=== PATIENT | female | born 1995 | race Caucasian/White ===

== ENCOUNTER → 2017-12-05 | Outpatient (CLI) | payer BC, OTHER ==
[~2017-12-05] MED LIST: CETI10 PO; PRED5 PO; TRIA80TC TOP
== END ==
LOC: LAB SHORT 11:39 → LAB 11:39
DX: B37.9 Candidiasis, unspecified (principal)
CPT/HCPCS: 87070; 87077; 87147; 87186; 87205

== ENCOUNTER → 2018-12-02 | Outpatient (CLI) | payer BC, OTHER | LOC: LAB 18:13 → LAB SHORT 18:13 | DX: Z20.2 Contact with and (suspected) exposure to infections with a predominantly sexual mode of transmission (principal) | CPT/HCPCS: 87070; 87205 ==

== ENCOUNTER → 2019-02-21 | Outpatient (CLI) | payer BC, OTHER | LOC: LAB 17:46 → LAB SHORT 17:46 | DX: N89.8 Other specified noninflammatory disorders of vagina (principal) | CPT/HCPCS: 87070; 87205 ==

== ENCOUNTER → 2019-04-01 | Outpatient (CLI) | payer BC, OTHER ==
[2019-04-02 07:13] LABS: Candida species (DNA Probe) Negative (NEGATIVE); G. vaginalis (DNA Probe) Negative (NEGATIVE); T. vaginalis (DNA Probe) Negative (NEGATIVE)
== END ==
LOC: LAB 20:20 → LAB SHORT 20:20
PROVIDERS: Registered Nurse Community Health
DX: N89.8 Other specified noninflammatory disorders of vagina (principal); L29.3 Anogenital pruritus, unspecified
CPT/HCPCS: 87480; 87510; 87660

== ENCOUNTER → 2020-07-21 | Outpatient (CLI) | payer BC, OTHER | LOC: PLD 07:33 → LAB SHORT 07:33 | DX: L30.8 Other specified dermatitis (principal) | CPT/HCPCS: 88305; 88312 ==

== ENCOUNTER → 2021-08-30 | Outpatient (CLI) | payer BC, OTHER | END | disposition home or self-care (01) | LOC: LAB SHORT 13:20 → LAB 13:20 | DX: R21 Rash and other nonspecific skin eruption (principal) | CPT/HCPCS: 87070; 87205 ==

== ENCOUNTER → 2021-11-04 | Outpatient (CLI) | payer BC, OTHER ==
[2021-11-05 10:04] LABS: Candida species (DNA Probe) Positive (NEGATIVE); G. vaginalis (DNA Probe) Positive (NEGATIVE); T. vaginalis (DNA Probe) Negative (NEGATIVE)
[2021-11-06 14:09] LABS: CHLAMYDIA BY NAA Negative (Negative); GONOCOCCUS BY NAA Negative (Negative); TRICH VAG BY NAA Negative (Negative)
== END ==
LOC: LAB SHORT 15:09
PROVIDERS: Registered Nurse Community Health
DX: N89.8 Other specified noninflammatory disorders of vagina (principal)
CPT/HCPCS: 87480; 87510; 87660

== ENCOUNTER → 2022-03-16 | Outpatient (CLI) | payer BC, OTHER ==
[2022-03-17 09:19] LABS: Candida species (DNA Probe) Negative (NEGATIVE); G. vaginalis (DNA Probe) Negative (NEGATIVE); T. vaginalis (DNA Probe) Negative (NEGATIVE)
== END | disposition home or self-care (01) ==
LOC: LAB 17:00 → LAB SHORT 17:00
PROVIDERS: Registered Nurse Community Health
DX: N76.0 Acute vaginitis (principal)
CPT/HCPCS: 87480; 87510; 87660

== ENCOUNTER → 2022-08-11 | Outpatient (CLI) | payer BC, OTHER ==
[2022-08-12 13:39] LABS: Candida species (DNA Probe) Negative (NEGATIVE); G. vaginalis (DNA Probe) Negative (NEGATIVE); T. vaginalis (DNA Probe) Negative (NEGATIVE)
== END | disposition home or self-care (01) ==
LOC: LAB 13:08 → LAB SHORT 13:08
PROVIDERS: Advanced Practice Midwife
DX: Z11.3 Encounter for screening for infections with a predominantly sexual mode of transmission (principal); N90.89 Other specified noninflammatory disorders of vulva and perineum; N76.0 Acute vaginitis
CPT/HCPCS: 87070; 87077; 87186; 87205; 87480; 87510; 87660

== ENCOUNTER → 2023-03-16 | Outpatient (CLI) | payer BC, OTHER | END | disposition home or self-care (01) | LOC: LAB 13:04 → LAB SHORT 13:04 | DX: R35.0 Frequency of micturition (principal) | CPT/HCPCS: 87077; 87086; 87186 ==

== ENCOUNTER 2023-04-09 09:29 | Day surgery (SDC) | payer OTHER ==
[~2023-04-09] VITALS: Ht 177.8 cm; Wt 95.8 kg
[2023-04-09] MEDS ORDERED: OMEP20ER PO (10:04)
[2023-04-09] MEDS ORDERED: IBUP800 PO (10:05)
--- NOTE | 2023-04-09 10:47 | NUR ---
04/09/23 1047 Shi Tejada WORK RELEASE NOTE PROVIDED TO PT IN PREOP FROM MD [employer] FOR PT TO RETURN TO WORK TOMORROW, PLACED IN PT FOLDER.
[2023-04-09 12:11] VITALS: BP 112/66
== END 2023-04-09 12:28 | disposition home or self-care (01) ==
LOC: ORSCSDS 09:29
PROVIDERS: Internal Medicine Gastroenterology
PROC: 0DB68ZX Excision of Stomach, Via Natural or Artificial Opening Endoscopic, Diagnostic (ICD-10-PCS; principal; 2023-04-09 10:45)
PROC: 0DB58ZX Excision of Esophagus, Via Natural or Artificial Opening Endoscopic, Diagnostic (ICD-10-PCS; principal; 2023-04-09 10:45)
PROC: 0DBE8ZX Excision of Large Intestine, Via Natural or Artificial Opening Endoscopic, Diagnostic (ICD-10-PCS; principal; 2023-04-09 10:45)
DX: K21.00 Gastro-esophageal reflux disease with esophagitis, without bleeding (principal); K62.5 Hemorrhage of anus and rectum; K59.00 Constipation, unspecified; K59.09 Other constipation; K29.70 Gastritis, unspecified, without bleeding; Z79.899 Other long term (current) drug therapy
CPT/HCPCS: 88305; 88342; J2704; J7120

== ENCOUNTER → 2023-12-14 | Outpatient (CLI) | payer OTHER, BC ==
[~2023-12-14] MED LIST changes: +IBUP800 PO; +OMEP20ER PO
[2023-12-14 17:24] LABS: Source, Urine Clean Catch
[2023-12-14 18:44] LABS: BASOPHILS ABSOLUTE AUTO 0.07 K/mm3 (0.00-0.23); BASOPHILS PERCENT AUTO 0 % (0-2); EOSINOPHILS ABSOLUTE AUTO 0.14 K/mm3 (0.00-0.68); EOSINOPHILS PERCENT AUTO 1 % (0-6); Hemoglobin 13.5 g/dL (11.5-16.0); IMMATURE GRAN ABSOLUTE AUTO 0.06 K/mm3 (0.00-0.10); IMMATURE GRAN PERCENT AUTO 0 % (0-1); LYMPHOCYTES ABSOLUTE AUTO 2.38 K/mm3 (0.84-5.20); LYMPHOCYTES PERCENT AUTO 14 % (21-46); MONOCYTES ABSOLUTE AUTO 0.93 K/mm3 (0.16-1.47); MONOCYTES PERCENT AUTO 6 % (4-13); Mean Corpuscular HGB 30.2 pg (26.0-34.0); Mean Corpuscular HGB Conc 34.6 g/dL (31.5-36.5); Mean Corpuscular Volume 87 fL (80-100); Mean Platelet Volume 9.6 fL (9.1-12.4); NEUTROPHILS ABSOLUTE AUTO 13.27 K/mm3 (1.96-9.15); NEUTROPHILS PERCENT AUTO 79 % (41-73); Platelet Count 371 K/mm3 (150-400); RDW Coefficient Variation 12.2 % (11.7-14.2); RDW Standard Deviation 39.1 fL (35.1-46.3); Red Blood Cell Count 4.47 M/mm3 (3.80-5.20); White Blood Cell Count 16.85 K/mm3 (4.00-11.30)
[2023-12-14 18:45] LABS: Appearance, Urine Clear (Clear); Bilirubin, Urine Neg (Neg); Blood, Urine Neg (Neg); Color, Urine Yellow (P-Yellow); Glucose Qualitative, Urine Neg (Neg); Ketones, Urine 2+ (Neg); Leukocyte Esterase, Urine Neg (Neg); Nitrite, Urine Neg (Neg); Protein, Urine 1+ (Neg); Urobilinogen, Urine NORM (Normal)
[2023-12-17 08:44] LABS: HIV 1,2 COMBO ANTIGEN/ANTIBODY Negative (Negative)
[2023-12-17 09:02] LABS: HEPATITIS C AB CIA INTERP Negative (Negative); HEPATITIS C ANTIBODY CIA INDEX 0.05 IV
[2023-12-17 11:55] LABS: HEPATITIS B SURFACE ANTIGEN Negative (Negative)
== END | disposition home or self-care (01) ==
LOC: LAB 17:22 → LAB SHORT 17:22
PROVIDERS: Registered Nurse Community Health
DX: Z34.91 Encounter for supervision of normal pregnancy, unspecified, first trimester (principal)
CPT/HCPCS: 84443; 86803; 87086; 87340; 87389

== ENCOUNTER → 2023-12-25 | Outpatient (CLI) | payer OTHER ==
[2023-12-27 23:36] LABS: APTIMA MEDIA TYPE Urine; C. TRACHOMATIS BY TMA Negative (Negative); N. GONORRHOEAE BY TMA Negative (Negative); SPECIMEN SOURCE Urine
== END | disposition home or self-care (01) ==
LOC: LAB 14:57 → LAB SHORT 14:57
PROVIDERS: Registered Nurse Community Health
DX: Z34.91 Encounter for supervision of normal pregnancy, unspecified, first trimester (principal)
CPT/HCPCS: 87491; 87591

== ENCOUNTER → 2024-04-24 | Outpatient (CLI) | payer OTHER ==
[2024-04-24 13:25] LABS: Hematocrit 37.8 % (33.0-51.0); Hemoglobin 12.8 g/dL (11.5-16.0)
== END ==
LOC: LAB 11:28 → LAB SHORT 11:28
PROVIDERS: Registered Nurse Community Health
DX: Z34.93 Encounter for supervision of normal pregnancy, unspecified, third trimester (principal); Z86.14 Personal history of Methicillin resistant Staphylococcus aureus infection
CPT/HCPCS: 82950; 85014; 85018; 87081

== ENCOUNTER → 2024-06-05 | Outpatient (CLI) | payer OTHER | LOC: LAB 16:06 → LAB SHORT 16:06 | DX: Z86.14 Personal history of Methicillin resistant Staphylococcus aureus infection (principal) | CPT/HCPCS: 87081 ==

== ENCOUNTER → 2024-06-11 | Outpatient (CLI) | payer OTHER ==
[2024-06-11 15:02] LABS: BASOPHILS ABSOLUTE AUTO 0.03 K/mm3 (0.00-0.23); BASOPHILS PERCENT AUTO 0 % (0-2); EOSINOPHILS ABSOLUTE AUTO 0.09 K/mm3 (0.00-0.68); EOSINOPHILS PERCENT AUTO 1 % (0-6); Hematocrit 34.3 % (33.0-51.0); Hemoglobin 11.9 g/dL (11.5-16.0); IMMATURE GRAN ABSOLUTE AUTO 0.07 K/mm3 (0.00-0.10); IMMATURE GRAN PERCENT AUTO 1 % (0-1); LYMPHOCYTES ABSOLUTE AUTO 1.61 K/mm3 (0.84-5.20); LYMPHOCYTES PERCENT AUTO 13 % (21-46); MONOCYTES ABSOLUTE AUTO 0.61 K/mm3 (0.16-1.47); MONOCYTES PERCENT AUTO 5 % (4-13); Mean Corpuscular HGB 31.6 pg (26.0-34.0); Mean Corpuscular HGB Conc 34.7 g/dL (31.5-36.5); Mean Corpuscular Volume 91 fL (80-100); Mean Platelet Volume 10.4 fL (9.1-12.4); NEUTROPHILS ABSOLUTE AUTO 9.99 K/mm3 (1.96-9.15); NEUTROPHILS PERCENT AUTO 81 % (41-73); Platelet Count 325 K/mm3 (150-400); RDW Coefficient Variation 13.1 % (11.7-14.2); RDW Standard Deviation 42.5 fL (35.1-46.3); Red Blood Cell Count 3.77 M/mm3 (3.80-5.20)
[2024-06-11 19:58] LABS: Albumin, Blood 2.6 g/dL (3.4-5.0); Albumin/Globulin Ratio 0.7 (0.8-1.8); Bilirubin, Total 0.2 mg/dL (0.1-1.0); Bun/Creatinine Ratio 10.9 (12.0-20.0); Calcium, Blood 9.2 mg/dL (8.5-10.1); Creatinine, Blood 0.64 mg/dL (0.40-1.00); Globulin, Blood 3.6 g/dL (2.2-4.0); Potassium, Blood 3.6 mmol/L (3.5-5.5); Total Protein, Blood 6.2 g/dL (6.4-8.2)
== END | disposition home or self-care (01) ==
LOC: LAB SHORT 13:05 → LAB 13:05
PROVIDERS: Registered Nurse Community Health
DX: O16.9 Unspecified maternal hypertension, unspecified trimester (principal)
CPT/HCPCS: 80053; 85025

== ENCOUNTER → 2024-06-16 | Outpatient (CLI) | payer OTHER ==
[2024-06-16 21:54] LABS: Protein, Urine Quantitative 17.4 mg/dL (0.0-11.9)
== END | disposition home or self-care (01) ==
LOC: LAB SHORT 05:05 → LAB 05:05
PROVIDERS: Registered Nurse Community Health
DX: O16.3 Unspecified maternal hypertension, third trimester (principal); Z86.14 Personal history of Methicillin resistant Staphylococcus aureus infection
CPT/HCPCS: 84156; 87081; 87150

== ENCOUNTER 2024-06-24 07:10 | Inpatient (IN) | payer OTHER ==
[~2024-06-24] VITALS: Ht 177.8 cm; Wt 114.5 kg
[2024-06-24] VITALS (31 sets, daily range): BP systolic 107–165; BP diastolic 55–103
[2024-06-24] MEDS ORDERED: Methylergonovine Maleate 0.2MG / ML 1ML Amp IM PRN (07:40)
[2024-06-24] MEDS ORDERED: Misoprostol 200 MCG Tab BC PRN (07:40)
[2024-06-24] MEDS ORDERED: ePHEDrine Sulfate 50 MG/ML 1ML Injection XX PRN (07:40)
[2024-06-24] MEDS ORDERED: Misoprostol 200 MCG Tab PR PRN (07:40)
[2024-06-24] MEDS ORDERED: Carboprost Tromethamine 250 MCG/ML 1ML Amp IM PRN (07:40)
[2024-06-24] MEDS ORDERED: Lactated Ringer's 1,000 ML IV SCH ×4 (07:40→19:50)
[2024-06-24] MEDS ORDERED: Ondansetron HCl 2 MG / ML 2ML Vial IV PRN (07:40)
[2024-06-24] MEDS ORDERED: Acetaminophen 500 MG Tab PO PRN (07:40)
[2024-06-24] MEDS ORDERED: Lactated Ringer's 1,000 ML IV PRN (07:40)
[2024-06-24] MEDS ORDERED: OXYTOCIN/RINGER'S LACTATE 500 ML IV PRN (07:40)
[2024-06-24] MEDS ORDERED: Oxytocin 10 Unit / ML Vial IM PRN (07:40)
[2024-06-24] MEDS ORDERED: FentaNYL 2mcg/ml-Bup 0.1% Epd 250 ML EPI PRN (07:40)
[2024-06-24] MEDS ORDERED: Tranexamic Acid 100 ML IV SCH (07:40)
[2024-06-24] MEDS ORDERED: Calcium Carbonate 500 MG Tab Chew PO PRN (07:45)
[2024-06-24] MEDS ORDERED: Misoprostol 25 MCG Tab PO SCH (08:00)
[2024-06-24 08:04] LABS: BASOPHILS ABSOLUTE AUTO 0.07 K/mm3 (0.00-0.23); BASOPHILS PERCENT AUTO 1 % (0-2); EOSINOPHILS ABSOLUTE AUTO 0.15 K/mm3 (0.00-0.68); EOSINOPHILS PERCENT AUTO 1 % (0-6); Hematocrit 32.4 % (33.0-51.0); Hemoglobin 11.3 g/dL (11.5-16.0); IMMATURE GRAN ABSOLUTE AUTO 0.07 K/mm3 (0.00-0.10); IMMATURE GRAN PERCENT AUTO 1 % (0-1); LYMPHOCYTES ABSOLUTE AUTO 1.72 K/mm3 (0.84-5.20); LYMPHOCYTES PERCENT AUTO 13 % (21-46); MONOCYTES ABSOLUTE AUTO 0.65 K/mm3 (0.16-1.47); MONOCYTES PERCENT AUTO 5 % (4-13); Mean Corpuscular HGB 31.4 pg (26.0-34.0); Mean Corpuscular HGB Conc 34.9 g/dL (31.5-36.5); Mean Corpuscular Volume 90 fL (80-100); Mean Platelet Volume 10.3 fL (9.1-12.4); NEUTROPHILS ABSOLUTE AUTO 10.17 K/mm3 (1.96-9.15); NEUTROPHILS PERCENT AUTO 79 % (41-73); Platelet Count 298 K/mm3 (150-400); RDW Standard Deviation 42.3 fL (35.1-46.3); White Blood Cell Count 12.83 K/mm3 (4.00-11.30)
[2024-06-24] MEDS ORDERED: LABE200 PO (08:57)
[2024-06-24] MEDS ORDERED: ASPI81CH PO (08:58)
[2024-06-24] MEDS ORDERED: PRENATAL TABLE1 EAC2 PO (08:59)
[2024-06-24] MEDS ORDERED: Labetalol HCL 100 MG TAB PO SCH (12:05)
[2024-06-24] MEDS ORDERED: Bupivacaine 0.5% HCl 5 MG/ML 30MLVIAL XX ONE (17:20)
[2024-06-24] MEDS ORDERED: OXYTOCIN/RINGER'S LACTATE 500 ML IV SCH (19:25)
[2024-06-24] MEDS ORDERED: Magnesium Sulfate 500 ML IV SCH (19:50)
[2024-06-24] MEDS ORDERED: NIFEdipine 10 MG Cap PO ONE (19:50)
[2024-06-24] MEDS ORDERED: Calcium Gluconate 0.465 mEq/ml 10 ml Vial IV PRN (19:50)
[2024-06-24] MEDS ORDERED: Magnesium Sulf 2 GM/Water 50ML 50 ML IV SCH (19:50)
[2024-06-24] MEDS ORDERED: Magnesium Sul 4 GM/Water100 ML 100 ML IV ONE (19:50)
[2024-06-24] MEDS ORDERED: Labetalol HCL 5 MG/ML 4ML Injection (Single Dose) IV PRN (19:55)
[2024-06-24] MEDS ORDERED: NIFEdipine 10 MG Cap ONE (19:56)
[2024-06-24 21:28] LABS: Albumin, Blood 2.4 g/dL (3.4-5.0); Albumin/Globulin Ratio 0.7 (0.8-1.8); Bilirubin, Total 0.2 mg/dL (0.1-1.0); Bun/Creatinine Ratio 18.6 (12.0-20.0); Calcium, Blood 9.6 mg/dL (8.5-10.1); Creatinine, Blood 0.75 mg/dL (0.40-1.00); Globulin, Blood 3.3 g/dL (2.2-4.0); Potassium, Blood 3.8 mmol/L (3.5-5.5); Total Protein, Blood 5.7 g/dL (6.4-8.2)
[2024-06-24 22:39] LABS: Creatinine, Urine Random 58.3 mg/dL (27.00-270.00); Protein, Urine Random 14.5 mg/dL (0.0-11.9); Protein/Creat Ratio, Ur Random 0.2
[2024-06-25] VITALS (49 sets, daily range): BP systolic 109–173; BP diastolic 59–103
--- NOTE | 2024-06-25 01:07 | NUR ---
PITOCIN CHECKLIST DONE. TRACING EXPECTED MINIMAL DUE TO MATERNAL MAGNESIUM INFUSION.
[2024-06-25 06:05] LABS: BASOPHILS ABSOLUTE AUTO 0.06 K/mm3 (0.00-0.23); BASOPHILS PERCENT AUTO 0 % (0-2); EOSINOPHILS PERCENT AUTO 1 % (0-6); Hemoglobin 11.9 g/dL (11.5-16.0); IMMATURE GRAN ABSOLUTE AUTO 0.07 K/mm3 (0.00-0.10); IMMATURE GRAN PERCENT AUTO 1 % (0-1); LYMPHOCYTES ABSOLUTE AUTO 1.81 K/mm3 (0.84-5.20); LYMPHOCYTES PERCENT AUTO 12 % (21-46); MONOCYTES ABSOLUTE AUTO 0.83 K/mm3 (0.16-1.47); MONOCYTES PERCENT AUTO 6 % (4-13); Mean Corpuscular HGB 31.6 pg (26.0-34.0); Mean Corpuscular Volume 90 fL (80-100); Mean Platelet Volume 10.2 fL (9.1-12.4); NEUTROPHILS PERCENT AUTO 80 % (41-73); Platelet Count 273 K/mm3 (150-400); RDW Coefficient Variation 12.9 % (11.7-14.2); RDW Standard Deviation 41.9 fL (35.1-46.3); Red Blood Cell Count 3.76 M/mm3 (3.80-5.20); White Blood Cell Count 15.17 K/mm3 (4.00-11.30)
[2024-06-25 06:32] LABS: Albumin, Blood 2.4 g/dL (3.4-5.0); Albumin/Globulin Ratio 0.7 (0.8-1.8); Bilirubin, Total 0.3 mg/dL (0.1-1.0); Bun/Creatinine Ratio 13.4 (12.0-20.0); Calcium, Blood 8.6 mg/dL (8.5-10.1); Creatinine, Blood 0.82 mg/dL (0.40-1.00); Globulin, Blood 3.4 g/dL (2.2-4.0); Potassium, Blood 3.8 mmol/L (3.5-5.5); Total Protein, Blood 5.8 g/dL (6.4-8.2)
--- NOTE | 2024-06-25 07:06 | NUR ---
EFW 7.5 LBS PER KEdd HARKINS CNM
[2024-06-25] MEDS ORDERED: NIFEdipine 10 MG Cap PO ONE (13:10)
[2024-06-25] MEDS ORDERED: NIFEdipine 10 MG Cap ONE (13:11)
[2024-06-25] MEDS ORDERED: Methylergonovine Maleate 0.2MG / ML 1ML Amp IM PRN (17:50)
[2024-06-25] MEDS ORDERED: Measles/Mumps/Rubella Vaccine 0.5 ML Vial SC ONE (17:50)
[2024-06-25] MEDS ORDERED: Misoprostol 200 MCG Tab PR PRN (17:50)
[2024-06-25] MEDS ORDERED: Benzocaine Topical Anesthetic Spray 60GM TOP PRN (17:55)
[2024-06-25] MEDS ORDERED: Lactated Ringer's 1,000 ML IV SCH (17:55)
[2024-06-25] MEDS ORDERED: Ibuprofen 400 MG Tab PO PRN (17:55)
[2024-06-25] MEDS ORDERED: Witch Hazel/Glycerin PADS TOP PRN (17:55)
[2024-06-25] MEDS ORDERED: Diphth,Pertuss(Acell),Tet Vac 0.5 ML VIAL IM ONE (17:55)
[2024-06-25] MEDS ORDERED: Docusate Sodium 100 MG Cap PO PRN (17:55)
[2024-06-25] MEDS ORDERED: Ketorolac Tromethamine 30mg Vial IV PRN (17:55)
[2024-06-25] MEDS ORDERED: FLU VACC TS2024-25(6MOS UP)/PF 45 MCG/0.5 ML SYRINGE IM ONE (18:00)
[2024-06-25] MEDS ORDERED: Lanolin Cream TOP PRN (18:00)
[2024-06-25] MEDS ORDERED: OxyCODONE 5 mg/Acetamin 325 mg TABLET PO PRN (18:00)
[2024-06-25] MEDS ORDERED: OXYTOCIN/RINGER'S LACTATE 500 ML IV SCH (18:00)
[2024-06-25] MEDS ORDERED: Acetaminophen 325 MG TABLET PO PRN (18:00)
[2024-06-25] MEDS ORDERED: Oxytocin 10 Unit / ML Vial IM ONE (18:00)
--- NOTE | 2024-06-25 19:30 | NUR ---
AFTER PTS NEURO EXAM, THIS RN NOTED THE PT HAD BRISK REFLEX'S. THIS RN ASKED THE PTS DAYSHIFT RN IF THIS WAS A CHANGE OR IF SHE HAD BRISK REFLEX'S ALL DAY. THE DAYSHIFT RN SAID THE PT HAD BEEN EPIDURALIZED SO SHE WAS UNSURE AND UNABLE TO CONFIRM IF HER REFLEXS WERE BRISK DURING THE DAY OR NOT. PT RALPH ANY HEADACHE, BLURRED VISION, EPIGASTIRC PAIN, DIZZINESS OR SOB.
[2024-06-26] VITALS (9 sets, daily range): BP systolic 118–156; BP diastolic 62–85
[2024-06-26 06:08] LABS: BASOPHILS ABSOLUTE AUTO 0.05 K/mm3 (0.00-0.23); BASOPHILS PERCENT AUTO 0 % (0-2); EOSINOPHILS ABSOLUTE AUTO 0.21 K/mm3 (0.00-0.68); EOSINOPHILS PERCENT AUTO 1 % (0-6); Hematocrit 29.7 % (33.0-51.0); Hemoglobin 10.4 g/dL (11.5-16.0); IMMATURE GRAN ABSOLUTE AUTO 0.12 K/mm3 (0.00-0.10); IMMATURE GRAN PERCENT AUTO 1 % (0-1); LYMPHOCYTES ABSOLUTE AUTO 2.05 K/mm3 (0.84-5.20); LYMPHOCYTES PERCENT AUTO 11 % (21-46); MONOCYTES ABSOLUTE AUTO 1.14 K/mm3 (0.16-1.47); MONOCYTES PERCENT AUTO 6 % (4-13); Mean Corpuscular HGB 31.4 pg (26.0-34.0); Mean Corpuscular Volume 90 fL (80-100); Mean Platelet Volume 10.2 fL (9.1-12.4); NEUTROPHILS ABSOLUTE AUTO 14.77 K/mm3 (1.96-9.15); NEUTROPHILS PERCENT AUTO 81 % (41-73); Platelet Count 251 K/mm3 (150-400); RDW Coefficient Variation 12.9 % (11.7-14.2); RDW Standard Deviation 41.8 fL (35.1-46.3); Red Blood Cell Count 3.31 M/mm3 (3.80-5.20); White Blood Cell Count 18.34 K/mm3 (4.00-11.30)
--- NOTE | 2024-06-26 06:15 | NUR ---
REPORT TO JOSEFA HERNANDEZ.
[2024-06-26] MEDS ORDERED: Prenatal Vit/FE Fumarate/FA 1 Tab PO SCH (09:00)
--- NOTE | 2024-06-26 13:50 | NUR ---
Pt going down to see/feed nb in nsy via WC
--- NOTE | 2024-06-26 15:36 | NUR ---
ASSISTED PT WITH BREAST PUMPING
--- NOTE | 2024-06-26 15:49 | NUR ---
ASSISTED PT UP TO BR AND PERICARE, PT BACK TO BED, DR PETERSEN AT BEDSIDE FOR UPDATE ON NB LP PROCEDURE
--- NOTE | 2024-06-26 16:42 | NUR ---
D/C'D MGSO4 S/L IV AT THIS TIME
--- NOTE | 2024-06-26 17:42 | NUR ---
PT SITTING UP VISITING WITH FAMILY DENIES BUTT OR VISUAL DISTURBANCES AT THIS TIME
--- NOTE | 2024-06-26 18:54 | NUR ---
Rept to on coming shift
[2024-06-27] VITALS (8 sets, daily range): BP systolic 128–172; BP diastolic 70–97
[2024-06-27] MEDS ORDERED: NIFEdipine 60 MG TabCR PO SCH (10:10)
[2024-06-27] MEDS ORDERED: NIFE60ER PO (18:34)
== END 2024-06-27 18:50 | disposition home or self-care (01) | DRG 807 ==
LOC: OBS 07:10 → BC 07:12 → OBS 07:25 → BC 07:26
PROVIDERS: Family Medicine; ADMIT Registered Nurse Community Health
PROC: 10E0XZZ Delivery of Products of Conception, External Approach (ICD-10-PCS; principal; 2024-06-25)
PROC: 10907ZC Drainage of Amniotic Fluid, Therapeutic from Products of Conception, Via Natural or Artificial Opening (ICD-10-PCS; 2024-06-25)
PROC: 0HQ9XZZ Repair Perineum Skin, External Approach (ICD-10-PCS; 2024-06-25)
PROC: 4A1HXCZ Monitoring of Products of Conception, Cardiac Rate, External Approach (ICD-10-PCS; 2024-06-25)
PROC: 3E0R3BZ Introduction of Anesthetic Agent into Spinal Canal, Percutaneous Approach (ICD-10-PCS; 2024-06-25)
PROC: 00HU33Z Insertion of Infusion Device into Spinal Canal, Percutaneous Approach (ICD-10-PCS; 2024-06-25)
DX: O14.93 Unspecified pre-eclampsia, third trimester (principal); Z37.0 Single live birth; Z3A.37 37 weeks gestation of pregnancy; O70.0 First degree perineal laceration during delivery; Z98.890 Other specified postprocedural states; Z86.14 Personal history of Methicillin resistant Staphylococcus aureus infection; Z88.2 Allergy status to sulfonamides; Z88.1 Allergy status to other antibiotic agents; Z79.899 Other long term (current) drug therapy
CPT/HCPCS: 36415; 51702; 80053; 82570; 84156; 85025; 86850; 86900; 86901; 86923; A9270; J2405; J2590; J3475; J7120

== ENCOUNTER → 2024-12-05 | Outpatient (CLI) | payer OTHER ==
[~2024-12-05] MED LIST changes: +ASPI81CH PO; +LABE200 PO; +NIFE60ER PO; +PRENATAL TABLE1 EAC2 PO
[2024-12-05 13:27] LABS: Bacterial Vaginosis PCR Negative (NEGATIVE); Candida Group, PCR NOT DETECTED (NOT DETECT); Candida glabrata-krusei, PCR NOT DETECTED (NOT DETECT)
== END | disposition home or self-care (01) ==
LOC: LAB SHORT 11:16 → LAB 11:16
PROVIDERS: Registered Nurse Community Health
DX: N89.8 Other specified noninflammatory disorders of vagina (principal)
CPT/HCPCS: 81515